=== PATIENT | male | born 1995 | race Caucasian/White ===

== ENCOUNTER 2022-09-27 01:20 | Inpatient (IN) | payer MEDICAID ==
[~2022-09-27] VITALS: Ht 188 cm; Wt 90.9 kg
[2022-09-27 02:29] LABS: HEMATOCRIT 49.4 % (42.0-52.0); HEMOGLOBIN 16.6 g/dl (13.5-17.5); MEAN CORPUSCULAR HEMOGLOBIN 30.9 pg (27.0-33.0); MEAN CORPUSCULAR HGB CONC 33.6 g/dl (32.0-36.5); PLATELET COUNT, AUTOMATED 274 10^3/uL (150-450); RED BLOOD COUNT 5.37 10^6/uL (4.30-6.10); WHITE BLOOD COUNT 8.4 10^3/uL (4.0-10.0)
[2022-09-27 03:05] LABS: RSV AMPLIFICATION NEGATIVE (NEGATIVE)
[2022-09-27] MEDS ORDERED: LORazepam 2 MG/ML VIAL IM STA (03:37)
[2022-09-27] MEDS ORDERED: diphenhydrAMINE 50MG/ML VIAL IM ONE (03:40)
[2022-09-27] MEDS ORDERED: HALOPERIDOL 5MG/ML VIAL (J1630 PER 1) IM ONE (03:40)
[2022-09-27 03:57] LABS: ACETAMINOPHEN LEVEL < 2.0 UG/ML (10.0-30.0); ALBUMIN 3.8 GM/DL (3.2-5.2); ALT/SGPT 29 U/L (12-78); BILIRUBIN,DIRECT 0.2 MG/DL (0.0-0.2); BILIRUBIN,TOTAL 0.5 MG/DL (0.2-1.0); BLOOD UREA NITROGEN 18 MG/DL (7-18); CALCIUM LEVEL 9.2 MG/DL (8.5-10.1); CARBON DIOXIDE LEVEL 26 MEQ/L (21-32); CHLORIDE LEVEL 107 MEQ/L (98-107); CREATININE FOR GFR 0.81 MG/DL (0.70-1.30); ETHYL ALCOHOL (ETHANOL) < 0.003 % (0.000-0.010); GLOMERULAR FILTRATION RATE > 60.0 (>60); GLUCOSE, FASTING 103 MG/DL (70-100); POTASSIUM SERUM 4.1 MEQ/L (3.5-5.1); SALICYLATE LEVEL 4.4 MG/DL (5.0-30.0); SODIUM LEVEL 140 MEQ/L (136-145); TOTAL PROTEIN 7.3 GM/DL (6.4-8.2)
[2022-09-27] MEDS ORDERED: HOME MED LIST COMPLETE! XX SCH (12:20)
[2022-09-27 14:45] LABS: AMPHETAMINES LEVEL URINE NEGATIVE (NEGATIVE); BARBITURATES URINE NEGATIVE (NEGATIVE); BENZODIAZEPINES URINE NEGATIVE (NEGATIVE); CANNABINOIDS URINE POSITIVE (NEGATIVE); COCAINE METABOLITE URINE NEGATIVE (NEGATIVE); METHADONE URINE NEGATIVE (NEGATIVE); OPIATES URINE NEGATIVE (NEGATIVE); PHENCYCLIDINE URINE NEGATIVE (NEGATIVE)
[2022-09-27] MEDS ORDERED: MOM 30ML SUSPENSION UDC PO PRN (15:00)
[2022-09-27] MEDS ORDERED: MAALOX 30 ML SUSP *UDC PO PRN (15:00)
[2022-09-27] MEDS ORDERED: hydrOXYzine 50 MG TAB PO PRN (15:00)
[2022-09-27] MEDS ORDERED: ACETAMINOPHEN TAB 650MG DOSE (2X325MG) PO PRN (15:00)
[2022-09-28 06:22] VITALS: BP 128/70
[2022-09-28] MEDS: FLUoxetine 20MG CAP PO SCH (10:24)
[2022-09-28] MEDS ORDERED: NICOTINE POLACRILEX 2 MG GUM PO PRN (17:25)
[2022-09-28] MEDS ORDERED: NICOTINE 21MG/24HR 1 EA TRANSDERMAL TD PRN (17:25)
[2022-09-28 18:16] VITALS: BP 133/69
[2022-09-28] MEDS: NICOTINE 21MG/24HR 1 EA TRANSDERMAL TD PRN (19:22)
[2022-09-28] MEDS ORDERED: NICOTINE 21MG/24HR 1 EA TRANSDERMAL TD SCH (21:00)
[2022-09-28] MEDS: ARIPiprazole 2 MG TAB PO SCH (21:52)
[2022-09-28] MEDS: traZODone 50 MG TAB PO PRN (22:24)
[2022-09-29 05:55] VITALS: BP 123/63
[2022-09-29 07:19] LABS: CHOLESTEROL RISK RATIO 3.521 (<5)
[2022-09-29] MEDS: FLUoxetine 20MG CAP PO SCH (09:54)
[2022-09-29 16:06] VITALS: BP 130/65
[2022-09-29] MEDS: ARIPiprazole 2 MG TAB PO SCH (20:42)
[2022-09-29] MEDS: traZODone 50 MG TAB PO PRN (21:50)
[2022-09-30 06:22] VITALS: BP 112/58
[2022-09-30] MEDS: NICOTINE 21MG/24HR 1 EA TRANSDERMAL TD PRN (09:36)
[2022-09-30] MEDS: FLUoxetine 20MG CAP PO SCH (09:36)
[2022-09-30 16:08] VITALS: BP 134/66
[2022-09-30] MEDS: ARIPiprazole 2 MG TAB PO SCH (22:21)
[2022-10-01 06:27] VITALS: BP 148/68
[2022-10-01] MEDS: FLUoxetine 20MG CAP PO SCH (08:01)
[2022-10-01] MEDS: NICOTINE 21MG/24HR 1 EA TRANSDERMAL TD PRN (14:08)
[2022-10-01 16:06] VITALS: BP 136/64
[2022-10-01] MEDS: ARIPiprazole 2 MG TAB PO SCH (20:56)
[2022-10-01] MEDS: traZODone 50 MG TAB PO PRN (23:11)
[2022-10-02] MEDS ORDERED: NICO21PAT TD (09:27)
[2022-10-02] MEDS ORDERED: FLUO20CA22 PO (09:27)
[2022-10-02] MEDS ORDERED: TRAZ-252 PO (09:27)
[2022-10-02] MEDS ORDERED: ABIL1TAB13 PO (09:27)
[2022-10-02] MEDS: NICOTINE 21MG/24HR 1 EA TRANSDERMAL TD PRN (09:55)
[2022-10-02] MEDS: FLUoxetine 20MG CAP PO SCH (09:55)
== END 2022-10-02 12:36 | disposition home or self-care (01) | DRG 755 ==
LOC: M ED 01:20 → M ED INP 14:56 → M PSY 17:54
PROVIDERS: ADMIT Student in an Organized Health Care Education/Training Program; ATTEND Student in an Organized Health Care Education/Training Program
DX: F43.10 Post-traumatic stress disorder, unspecified (principal); F32.A Depression, unspecified; F60.89 Other specific personality disorders; Z59.00 Homelessness unspecified; Z62.810 Personal history of physical and sexual abuse in childhood; Z62.811 Personal history of psychological abuse in childhood; R45.851 Suicidal ideations; R82.998 Other abnormal findings in urine; F17.200 Nicotine dependence, unspecified, uncomplicated; Z71.6 Tobacco abuse counseling

== ENCOUNTER 2022-11-18 17:29 | Emergency (ER) | payer MEDICAID ==
[~2022-11-18] VITALS: Ht 188 cm; Wt 86.7 kg
[~2022-11-18 17:29] MED LIST: ABIL1TAB13 PO; FLUO20CA22 PO; NICO21PAT TD; TRAZ-252 PO
[2022-11-18] MEDS ORDERED: D5W IV ONE ×2 (17:45→20:20)
[2022-11-18] MEDS ORDERED: ACETYLCYSTEINE IV ONE ×2 (17:45→20:20)
[2022-11-18 18:06] LABS: HEMATOCRIT 49.9 % (42.0-52.0); HEMOGLOBIN 16.7 g/dl (13.5-17.5); MEAN CORPUSCULAR HEMOGLOBIN 31.3 pg (27.0-33.0); MEAN CORPUSCULAR HGB CONC 33.5 g/dl (32.0-36.5); MEAN CORPUSCULAR VOLUME 93.4 fl (80.0-96.0); RED BLOOD COUNT 5.34 10^6/uL (4.30-6.10); WHITE BLOOD COUNT 7.9 10^3/uL (4.0-10.0)
[2022-11-18 18:20] LABS: INR 1.34; PARTIAL THROMBOPLASTIN TIME 34.8 SECONDS (24.8-34.2); PROTHROMBIN TIME 16.8 SECONDS (12.5-14.5)
[2022-11-18 18:30] LABS: PLATELET COUNT, AUTOMATED 41 10^3/uL (150-450)
[2022-11-18 18:48] LABS: ETHYL ALCOHOL (ETHANOL) 0.003 % (0.000-0.010)
[2022-11-18 18:50] LABS: ALBUMIN 3.7 G/DL (3.2-5.2); ALKALINE PHOSPHATASE 141 U/L (46-116); ALT/SGPT 689 U/L (7.0-40); AST/SGOT 694 U/L (<34); BILIRUBIN,DIRECT 1.1 MG/DL (<0.4); BILIRUBIN,TOTAL 2.8 MG/DL (0.3-1.2); BLOOD UREA NITROGEN 16 MG/DL (9-23); CALCIUM LEVEL 8.7 MG/DL (8.5-10.1); CARBON DIOXIDE LEVEL 22 MMOL/L (20-31); CHLORIDE LEVEL 104 MMOL/L (98-107); CREATININE FOR GFR 0.78 MG/DL (0.70-1.30); GLOMERULAR FILTRATION RATE > 60.0 (>60); GLUCOSE, FASTING 145 MG/DL (60-100); POTASSIUM SERUM 3.7 MMOL/L (3.5-5.1); SALICYLATE LEVEL < 3.0 MG/DL (<30); SODIUM LEVEL 136 MMOL/L (136-145); TOTAL PROTEIN 6.3 G/DL (5.7-8.2)
[2022-11-18 18:52] LABS: THYROID STIMULATING HORMONE 0.428 uIU/ML (0.55-4.78)
[2022-11-18 19:08] LABS: ACETAMINOPHEN LEVEL 9.1 UG/ML (10.0-20.0)
[2022-11-18 19:36] LABS: VENOUS BASE EXCESS -0.1 (-2.0-2.0); VENOUS HCO3 24.6 MEQ/L (23.0-27.0); VENOUS O2 SATURATION 79.1 % (60.0-80.0); VENOUS PARTIAL PRESSURE CO2 40.5 mmHg (38.0-50.0); VENOUS PARTIAL PRESSURE O2 40.3 mmHg (30.0-50.0); VENOUS PH 7.401 UNITS (7.330-7.430); VENOUS STANDARD HCO3 23.8 MEQ/L; VENOUS TOTAL CO2 25.8 MEQ/L (24.0-28.0)
[2022-11-18] MEDS ORDERED: ONDANSETRON 4MG 2ML VIAL IV ONE (19:55)
[2022-11-18 20:02] LABS: AMPHETAMINES LEVEL URINE NEGATIVE (NEGATIVE); BARBITURATES URINE NEGATIVE (NEGATIVE); BENZODIAZEPINES URINE NEGATIVE (NEGATIVE); COCAINE METABOLITE URINE NEGATIVE (NEGATIVE); METHADONE URINE NEGATIVE (NEGATIVE); OPIATES URINE NEGATIVE (NEGATIVE)
[2022-11-18 20:03] LABS: CANNABINOIDS URINE NEGATIVE (NEGATIVE); PHENCYCLIDINE URINE NEGATIVE (NEGATIVE)
[2022-11-18 21:25] LABS: LDH LACTATE DEHYDROGENASE 713 U/L (120-246)
[2022-11-19 00:23] LABS: INR 1.68; PROTHROMBIN TIME 20.1 SECONDS (12.5-14.5)
[2022-11-19 00:24] LABS: PARTIAL THROMBOPLASTIN TIME 34.9 SECONDS (24.8-34.2)
[2022-11-19 00:33] LABS: BILIRUBIN,DIRECT 1.4 MG/DL (<0.4)
[2022-11-19] MEDS ORDERED: ACETYLCYSTEINE IV ONE ×2 (01:00→14:00)
[2022-11-19] MEDS ORDERED: D5W IV ONE ×2 (01:00→14:00)
[2022-11-19 01:03] LABS: ALBUMIN 3.2 G/DL (3.2-5.2); BILIRUBIN,TOTAL 3.4 MG/DL (0.3-1.2); TOTAL PROTEIN 5.7 G/DL (5.7-8.2)
[2022-11-19 06:46] LABS: ALBUMIN 3.2 G/DL (3.2-5.2); BILIRUBIN,DIRECT 1.2 MG/DL (<0.4); BILIRUBIN,TOTAL 3.1 MG/DL (0.3-1.2); TOTAL PROTEIN 5.7 G/DL (5.7-8.2)
[2022-11-19 06:48] LABS: INR 1.92; PROTHROMBIN TIME 22.3 SECONDS (12.5-14.5)
[2022-11-19 06:49] LABS: PARTIAL THROMBOPLASTIN TIME 37.1 SECONDS (24.8-34.2)
[2022-11-19 12:14] LABS: INR 1.95; PROTHROMBIN TIME 22.6 SECONDS (12.5-14.5)
[2022-11-19 12:15] LABS: PARTIAL THROMBOPLASTIN TIME 34.6 SECONDS (24.8-34.2)
[2022-11-19 13:04] LABS: BILIRUBIN,DIRECT 1.3 MG/DL (<0.4)
[2022-11-19 13:17] LABS: ALBUMIN 3.3 G/DL (3.2-5.2); BILIRUBIN,TOTAL 2.9 MG/DL (0.3-1.2); TOTAL PROTEIN 5.9 G/DL (5.7-8.2)
[2022-11-19] MEDS ORDERED: HOME MED LIST COMPLETE! XX SCH (18:05)
[2022-11-19 18:14] LABS: BASO # 0.1 10^3/uL (0.0-0.2); BASO % 1.1 % (0.0-1.0); EOS # 0.1 10^3/uL (0.0-0.5); EOS % 1.8 % (0.0-3.0); HEMATOCRIT 52.2 % (42.0-52.0); HEMOGLOBIN 17.8 g/dl (13.5-17.5); LYMPH # 0.7 10^3/uL (1.5-5.0); LYMPH % 15.5 % (24.0-44.0); MEAN CORPUSCULAR HEMOGLOBIN 31.8 pg (27.0-33.0); MEAN CORPUSCULAR HGB CONC 34.1 g/dl (32.0-36.5); MEAN CORPUSCULAR VOLUME 93.2 fl (80.0-96.0); MONO # 0.4 10^3/uL (0.0-0.8); MONO % 8.1 % (2.0-8.0); NEUTROPHILS # 3.4 10^3/uL (1.5-8.5); NEUTROPHILS % 73.3 % (36.0-66.0); WHITE BLOOD COUNT 4.6 10^3/uL (4.0-10.0)
[2022-11-19 18:23] LABS: INR 2.21; PROTHROMBIN TIME 24.9 SECONDS (12.5-14.5)
[2022-11-19 18:24] LABS: PARTIAL THROMBOPLASTIN TIME 37.6 SECONDS (24.8-34.2)
[2022-11-19 18:41] LABS: PLATELET COUNT, AUTOMATED 95 10^3/uL (150-450)
[2022-11-19 18:44] LABS: ALBUMIN 3.1 G/DL (3.2-5.2); ALKALINE PHOSPHATASE 130 U/L (46-116); BILIRUBIN,TOTAL 3.1 MG/DL (0.3-1.2); BLOOD UREA NITROGEN 10 MG/DL (9-23); CALCIUM LEVEL 8.7 MG/DL (8.5-10.1); CARBON DIOXIDE LEVEL 25 MMOL/L (20-31); CHLORIDE LEVEL 106 MMOL/L (98-107); GLOMERULAR FILTRATION RATE > 60.0 (>60); GLUCOSE, FASTING 123 MG/DL (60-100); POTASSIUM SERUM 3.8 MMOL/L (3.5-5.1); SODIUM LEVEL 137 MMOL/L (136-145); TOTAL PROTEIN 5.6 G/DL (5.7-8.2)
[2022-11-19 18:58] LABS: ALT/SGPT 1477 U/L (7.0-40); AST/SGOT 1165 U/L (<34)
[2022-11-19] MEDS ORDERED: D5W/LR 1,000 ML IV SCH (19:55)
[2022-11-19] MEDS ORDERED: NS 1,000 ML IV SCH (20:15)
[2022-11-19] MEDS ORDERED: MIDAZOLAM INJ 2MG/2ML VIAL (J2250 PER 1MG) IM ONE (20:20)
[2022-11-19] MEDS ORDERED: diphenhydrAMINE 50MG/ML VIAL IM ONE (20:20)
[2022-11-19] MEDS ORDERED: HALOPERIDOL 5MG/ML 1ML VIAL IM ONE (20:20)
[2022-11-19] MEDS ORDERED: LORazepam 2 MG/ML VIAL IM STA (20:21)
[2022-11-19] MEDS ORDERED: LORazepam 2 MG/ML VIAL As Ordered ONE (20:22)
[2022-11-19] MEDS: PANTOPRAZOLE 40MG VIAL IV SCH (21:00)
[2022-11-20 07:09] LABS: INR 2.45
[2022-11-20 08:08] LABS: ACETAMINOPHEN LEVEL < 2.0 UG/ML (10.0-20.0); ALBUMIN 3.1 G/DL (3.2-5.2); ALKALINE PHOSPHATASE 126 U/L (46-116); ALT/SGPT 4165 U/L (7.0-40); AST/SGOT 4842 U/L (<34); BILIRUBIN,TOTAL 3.2 MG/DL (0.3-1.2); BLOOD UREA NITROGEN 14 MG/DL (9-23); CALCIUM LEVEL 8.8 MG/DL (8.5-10.1); CARBON DIOXIDE LEVEL 20 MMOL/L (20-31); CHLORIDE LEVEL 106 MMOL/L (98-107); CREATININE FOR GFR 0.93 MG/DL (0.70-1.30); GLOMERULAR FILTRATION RATE > 60.0 (>60); GLUCOSE, FASTING 92 MG/DL (60-100); POTASSIUM SERUM 4.1 MMOL/L (3.5-5.1); SODIUM LEVEL 137 MMOL/L (136-145); TOTAL PROTEIN 5.5 G/DL (5.7-8.2)
[2022-11-20] MEDS: PANTOPRAZOLE 40MG VIAL IV SCH (11:50)
[2022-11-20 12:19] LABS: INR 3.48; PROTHROMBIN TIME 35.5 SECONDS (12.5-14.5)
[2022-11-20] MEDS ORDERED: ACETYLCYSTEINE IV SCH ×4 (13:00)
[2022-11-20] MEDS ORDERED: D5W IV SCH ×4 (13:00)
[2022-11-20] MEDS ORDERED: PHYTONADIONE 5 MG TAB PO ONE (13:30)
[2022-11-20 13:35] VITALS: BP 122/86
[2022-11-20 13:38] LABS: ALKALINE PHOSPHATASE 130 U/L (46-116); BILIRUBIN,TOTAL 2.6 MG/DL (0.3-1.2); BLOOD UREA NITROGEN 16 MG/DL (9-23); CALCIUM LEVEL 8.9 MG/DL (8.5-10.1); CARBON DIOXIDE LEVEL 25 MMOL/L (20-31); CHLORIDE LEVEL 104 MMOL/L (98-107); CREATININE FOR GFR 1.19 MG/DL (0.70-1.30); GLOMERULAR FILTRATION RATE > 60.0 (>60); GLUCOSE, FASTING 89 MG/DL (60-100); SODIUM LEVEL 137 MMOL/L (136-145); TOTAL PROTEIN 5.2 G/DL (5.7-8.2)
[2022-11-20 14:20] LABS: ALT/SGPT 5996 U/L (7.0-40)
== END 2022-11-20 13:37 | disposition short-term general hospital (02) ==
LOC: EDBD 17:29 → M ED 18:04
DX: T39.1X1A Poisoning by 4-Aminophenol derivatives, accidental (unintentional), initial encounter (principal); R45.851 Suicidal ideations; R00.1 Bradycardia, unspecified; F32.A Depression, unspecified; F41.9 Anxiety disorder, unspecified; F10.10 Alcohol abuse, uncomplicated
CPT/HCPCS: 36415; 70450; 80048; 80053; 80076; 80143; 80307; 82077; 82140; 82803; 82977; 83605; 83615; 84443; 85025; 85027; 85049; 85055; 85610; 85730; 87635; 93005; 96365; 96366; 96375; 99285; C9113; J0132; J1200; J1630; J2060; J2405

== ENCOUNTER 2023-01-27 02:50 | Emergency (ER) | payer MEDICAID ==
[~2023-01-27] VITALS: Ht 185.4 cm; Wt 85.0 kg
[2023-01-27] MEDS ORDERED: ONDANSETRON 4MG 2ML VIAL IV ONE (03:25)
[2023-01-27] MEDS ORDERED: MORPHINE 4 MG/ML 1ML VIAL IV PRN (03:25)
[2023-01-27 03:26] LABS: BASO # 0.1 10^3/uL (0.0-0.2); BASO % 0.8 % (0.0-1.0); EOS # 0.3 10^3/uL (0.0-0.5); EOS % 3.9 % (0.0-3.0); HEMATOCRIT 45.5 % (42.0-52.0); HEMOGLOBIN 15.4 g/dl (13.5-17.5); LYMPH # 3.3 10^3/uL (1.5-5.0); LYMPH % 42.9 % (24.0-44.0); MEAN CORPUSCULAR HEMOGLOBIN 32.8 pg (27.0-33.0); MEAN CORPUSCULAR HGB CONC 33.8 g/dl (32.0-36.5); MONO # 0.8 10^3/uL (0.0-0.8); MONO % 10.3 % (2.0-8.0); NEUTROPHILS # 3.2 10^3/uL (1.5-8.5); NEUTROPHILS % 41.8 % (36.0-66.0); PLATELET COUNT, AUTOMATED 308 10^3/uL (150-450); RED BLOOD COUNT 4.69 10^6/uL (4.30-6.10); WHITE BLOOD COUNT 7.6 10^3/uL (4.0-10.0)
[2023-01-27 03:37] LABS: INR 0.86; PROTHROMBIN TIME 11.9 SECONDS (12.5-14.5)
[2023-01-27 03:38] LABS: PARTIAL THROMBOPLASTIN TIME 32.6 SECONDS (24.8-34.2)
[2023-01-27 03:46] LABS: ETHYL ALCOHOL (ETHANOL) 0.163 % (0.000-0.010); LIPASE 35 U/L (12-53)
[2023-01-27 03:47] LABS: ACETAMINOPHEN LEVEL < 2.0 UG/ML (10.0-20.0); SALICYLATE LEVEL < 3.0 MG/DL (<30)
[2023-01-27 03:48] LABS: ALBUMIN 4.4 G/DL (3.2-5.2); ALKALINE PHOSPHATASE 115 U/L (46-116); ALT/SGPT 28 U/L (7.0-40); AST/SGOT 33 U/L (<34); BILIRUBIN,DIRECT 0.2 MG/DL (<0.4); BILIRUBIN,TOTAL 0.5 MG/DL (0.3-1.2); BLOOD UREA NITROGEN 16 MG/DL (9-23); CALCIUM LEVEL 9.3 MG/DL (8.5-10.1); CARBON DIOXIDE LEVEL 26 MMOL/L (20-31); CHLORIDE LEVEL 104 MMOL/L (98-107); CREATININE FOR GFR 0.89 MG/DL (0.70-1.30); GLOMERULAR FILTRATION RATE > 60.0 (>60); GLUCOSE, FASTING 85 MG/DL (60-100); POTASSIUM SERUM 3.9 MMOL/L (3.5-5.1); SODIUM LEVEL 139 MMOL/L (136-145); TOTAL PROTEIN 7.3 G/DL (5.7-8.2)
[2023-01-27] MEDS ORDERED: ISOVUE-370 76% 100ML VIAL As Ordered ONE (04:25)
[2023-01-27] MEDS: GASTROGRAFIN SOLUTION 30ML PO SCH ×2 (05:00→05:29)
[2023-01-27] MEDS ORDERED: GASTROGRAFIN SOLUTION 30ML As Ordered ONE (05:03)
[2023-01-27 07:33] LABS: AMPHETAMINES LEVEL URINE NEGATIVE (NEGATIVE); BARBITURATES URINE NEGATIVE (NEGATIVE); BENZODIAZEPINES URINE NEGATIVE (NEGATIVE); CANNABINOIDS URINE NEGATIVE (NEGATIVE); COCAINE METABOLITE URINE NEGATIVE (NEGATIVE); METHADONE URINE NEGATIVE (NEGATIVE); PHENCYCLIDINE URINE NEGATIVE (NEGATIVE)
[2023-01-27 07:35] LABS: OPIATES URINE POSITIVE (NEGATIVE)
[2023-01-27 07:45] LABS: RSV AMPLIFICATION NEGATIVE (NEGATIVE)
[2023-01-27 09:07] VITALS: BP 119/60
== END 2023-01-27 09:35 | disposition home or self-care (01) ==
LOC: EDBD 02:50 → M ED 02:50
DX: K52.9 Noninfective gastroenteritis and colitis, unspecified (principal); F17.200 Nicotine dependence, unspecified, uncomplicated; F12.10 Cannabis abuse, uncomplicated; F10.10 Alcohol abuse, uncomplicated
CPT/HCPCS: 74177; 80048; 80076; 80143; 80307; 81001; 82077; 82140; 83605; 83690; 85025; 85610; 85730; 87631; 93005; 93041; 96374; 99285; J2270; J2405

== ENCOUNTER 2023-04-20 20:02 | Inpatient (IN) | payer MEDICAID ==
[~2023-04-20] VITALS: Ht 175.3 cm; Wt 86.4 kg
[2023-04-20] MEDS ORDERED: NS 1,000 ML IV ONE (20:15)
[2023-04-20] MEDS ORDERED: ONDANSETRON 4MG 2ML VIAL As Ordered ONE (20:15)
[2023-04-20] MEDS ORDERED: HALOPERIDOL 5MG/ML 1ML VIAL IV ONE (20:15)
[2023-04-20 20:48] LABS: BASO # 0.1 10^3/uL (0.0-0.2); BASO % 0.8 % (0.0-1.0); EOS # 0.2 10^3/uL (0.0-0.5); HEMATOCRIT 46.3 % (42.0-52.0); HEMOGLOBIN 16.4 g/dl (13.5-17.5); LYMPH # 5.2 10^3/uL (1.5-5.0); LYMPH % 49.3 % (24.0-44.0); MEAN CORPUSCULAR HEMOGLOBIN 31.9 pg (27.0-33.0); MEAN CORPUSCULAR HGB CONC 35.4 g/dl (32.0-36.5); MEAN CORPUSCULAR VOLUME 90.1 fl (80.0-96.0); MONO # 0.8 10^3/uL (0.0-0.8); NEUTROPHILS # 4.2 10^3/uL (1.5-8.5); NEUTROPHILS % 39.6 % (36.0-66.0); PLATELET COUNT, AUTOMATED 325 10^3/uL (150-450); RED BLOOD COUNT 5.14 10^6/uL (4.30-6.10); WHITE BLOOD COUNT 10.6 10^3/uL (4.0-10.0)
[2023-04-20] MEDS ORDERED: LORazepam 2 MG/ML 1ML VIAL IV STA (20:57)
[2023-04-20 21:16] LABS: SALICYLATE LEVEL < 3.0 MG/DL (<30)
[2023-04-20 21:17] LABS: ACETAMINOPHEN LEVEL < 2.0 UG/ML (10.0-20.0); ALKALINE PHOSPHATASE 113 U/L (46-116); ALT/SGPT 22 U/L (7.0-40); AST/SGOT 20 U/L (<34); BILIRUBIN,TOTAL 0.5 MG/DL (0.3-1.2); BLOOD UREA NITROGEN 13 MG/DL (9-23); CARBON DIOXIDE LEVEL 20 MMOL/L (20-31); CHLORIDE LEVEL 106 MMOL/L (98-107); CREATININE FOR GFR 0.96 MG/DL (0.70-1.30); GLOMERULAR FILTRATION RATE > 60.0 (>60); GLUCOSE, FASTING 146 MG/DL (60-100); MAGNESIUM LEVEL 1.7 MG/DL (1.8-2.4); POTASSIUM SERUM 3.5 MMOL/L (3.5-5.1); SODIUM LEVEL 142 MMOL/L (136-145); TOTAL PROTEIN 6.6 G/DL (5.7-8.2)
[2023-04-20 22:42] LABS: PHENCYCLIDINE URINE NEGATIVE (NEGATIVE)
[2023-04-20 22:43] LABS: AMPHETAMINES LEVEL URINE NEGATIVE (NEGATIVE); BARBITURATES URINE NEGATIVE (NEGATIVE); BENZODIAZEPINES URINE NEGATIVE (NEGATIVE); COCAINE METABOLITE URINE NEGATIVE (NEGATIVE); METHADONE URINE NEGATIVE (NEGATIVE); OPIATES URINE NEGATIVE (NEGATIVE)
[2023-04-20 22:44] LABS: CANNABINOIDS URINE POSITIVE (NEGATIVE)
[2023-04-21] MEDS ORDERED: HOME MED LIST COMPLETE! XX SCH (09:55)
[2023-04-21 13:30] VITALS: BP 108/63
[2023-04-22] MEDS ORDERED: ENOXAPARIN 40MG/0.4ML SYRINGE (J1650 PER 10MG) SC SCH (09:00)
== END 2023-04-21 17:55 | disposition left against medical advice (07) | DRG 770 ==
LOC: M ED 20:02 → EDBD 20:02 → M ED INP 04-21 11:16 → M MS5PR 04-21 13:29
PROVIDERS: ADMIT Family Medicine; ATTEND Family Medicine
DX: F12.929 Cannabis use, unspecified with intoxication, unspecified (principal); F32.A Depression, unspecified; F41.9 Anxiety disorder, unspecified; F17.210 Nicotine dependence, cigarettes, uncomplicated